=== PATIENT | male | born 1985 | race Two or more races ===

== ENCOUNTER 2022-10-27 20:00 | Emergency (ER) | payer OTHER ==
[~2022-10-27] VITALS: Ht 182.9 cm; Wt 91.0 kg
[2022-10-27] MEDS ORDERED: HYDROcodone-ACET 10/325MG TAB PO ONE (22:30)
[2022-10-28] MEDS ORDERED: MORPHINE SULFATE 4 MG/ML SYR/VIAL IM ONE (01:15)
[2022-10-28 02:00] VITALS: BP 94/60
[2022-10-28] MEDS ORDERED: cefTRIAXone SOD 1,000 MG VL IM ONE (02:30)
== END 2022-10-28 02:42 ==
LOC: ER 20:00 → EEVIPCON 20:00 → ER 10-28 02:42
DX: S51.812A Laceration without foreign body of left forearm, initial encounter (principal); S51.811A Laceration without foreign body of right forearm, initial encounter; F32.9 Major depressive disorder, single episode, unspecified; W26.8XXA Contact with other sharp object(s), not elsewhere classified, initial encounter; Y93.89 Activity, other specified; Y92.89 Other specified places as the place of occurrence of the external cause; Y99.8 Other external cause status
CPT/HCPCS: 12002; 96372; 99284; J0696; J2270